=== PATIENT | female | born 1955 | race Caucasian/White ===

== ENCOUNTER 2018-11-27 10:30 | Emergency (ER) | payer OTHER ==
--- NOTE | 2018-11-27 12:12 | UC ---
Respiratory Complaint HPI - HPI Summary HPI Summary: 63 yo female presents with wheezing, cough, and chest congestion for the last week. She tells me that about a week ago her symptoms began and she saw her PCP in [place] who dx'd her with a viral illness and gave her tessalon. She has been taking these with no relief. She then flew to [place] and her cough has worsened and she has started to notice crackling and wheezing in her lungs. She mentions that she has a hx of PEx3, but this doesn't feel the same. She has an albuterol inhaler, but has not been using this. She denies fever, chills, sore throat, sinus symptoms, SOB, chest pain. - History of Current Complaint Chief Complaint: UCRespiratory Stated Complaint: COUGH Time Seen by Provider: 11/27/18 12:12 Hx Obtained From: Patient Onset/Duration: Gradual Onset Severity Initially: Mild Severity Currently: Mild Pain Intensity: 3 Pain Scale Used: 0-10 Numeric Character: Cough: Nonproductive - Allergies/Home Medications Allergies/Adverse Reactions: Allergies Allergy/AdvReac Type Severity Reaction Status Date / Time No Known Allergies Allergy Verified 11/27/18 10:59 Home Medications: Home Medications Albuterol HFA INHALER* [Ventolin HFA Inhaler*] 2 puff INH Q4H PRN 11/27/18 [ History Confirmed 11/27/18] Benzonatate CAP* [Tessalon 100 MG CAP*] 100 mg PO TID 11/27/18 [History Confirmed 11/27/18] FLUoxetine CAP* [PROzac CAP*] 40 mg PO DAILY 11/27/18 [History Confirmed ] Lisinopril 20 mg PO DAILY WITH MEAL 11/27/18 [History Confirmed 11/27/18] Warfarin TAB(*) [Coumadin TAB(*)] 7.5 mg PO 1700 11/27/18 [History Confirmed ] PMH/Surg Hx/FS Hx/Imm Hx - Additional Past Medical History Additional PMH: PE Cardiovascular History: Hypertension Psychological History: Anxiety, Depression - Surgical History Surgical History: Yes Surgery Procedure, Year, and Place: appy. c section. intestine/ resection. hysterectomy. lk rplacement - Family History Known Family History: Positive: Respiratory Disease, Blood Disorder - Social History Lives: With Family Alcohol Use: None Substance Use Type: None Smoking Status (MU): Never Smoked Tobacco Review of Systems All Other Systems Reviewed And Are Negative: Yes Constitutional: Positive: Negative Skin: Positive: Negative Eyes: Positive: Negative ENT: Positive: Negative Respiratory: Positive: Cough Cardiovascular: Positive: Negative Gastrointestinal: Positive: Negative Neurovascular: Positive: Negative Neurological: Positive: Negative Psychological: Positive: Negative Physical Exam - Summary Physical Exam Summary: GENERAL: NAD. WDWN. No pain distress. SKIN: No rashes, sores, lesions, or open wounds. HEENT: Head: AT/NC Eyes: Conjunctiva clear without inflammation or discharge. Ears: Hearing grossly normal. TMs intact, no bulging, erythema, or edema. Nose: Nasal mucosa pink and moist. NTTP maxillary and frontal sinus. Throat: Posterior oropharynx without exudates, erythema, or tonsillar enlargement. Uvula midline. NECK: Supple. Nontender. No lymphadenopathy. CHEST: Mild wheezing throughout with crackle RLL. No accessory muscle use. Breathing comfortably and in no distress. CV: RRR. Without m/r/g. Pulses intact. Cap refill <2seconds NEURO: Alert. PSYCH: Age appropriate behavior. Triage Information Reviewed: Yes Vital Signs: Initial Vital Signs Temp 97.0 F 11/27/18 10:54 Pulse 64 11/27/18 10:54 Resp 19 11/27/18 10:54 BP 150/85 11/27/18 10:54 Pulse Ox 98 11/27/18 10:54 Vital Signs Reviewed: Yes Respiratory Course/Dx - Course Course Of Treatment: CXR: IMPRESSION: NO ACTIVE CARDIOPULMONARY DISEASE. DUONEB: Feels improved s/p. Coughing up phlegm where she was unable to before. She is not tachypneic or tachycardic. Wheezing on exam with improvement s/p duoneb. Suspect bronchitis. Suspicion for recurrent PE is low at this time, but advised pt that if her symptoms do not improve or if her breathing worsens to go to the ED. She voiced understanding. Upon discharge, I was notified by Angela GRAVES that O2% recheck was down to 93%. I went to speak to the patient and she states that was "good for her". She is not having any dyspnea or difficulty breathing. I rechecked the O2% myself and found it to be 96%. Pt is wearing dark pink gel acrylic nail slovak and I suspect this is altering the O2% read. - Differential Dx/Diagnosis Provider Diagnosis: Bronchitis Discharge - Sign-Out/Discharge Documenting (check all that apply): Patient Departure All imaging exams completed and their final reports reviewed: Yes - Discharge Plan Condition: Stable Disposition: HOME Prescriptions: Amoxicillin/Clavulanate TAB* [Augmentin TAB 875*] 875 mg PO BID #14 tab predniSONE TAB* [Deltasone 20 MG TAB*] 40 mg PO DAILY #7 tab Patient Education Materials: Acute Bronchitis (ED) Referrals: No Primary Care Phys,NOPCP [Primary Care Provider] - Additional Instructions: If you develop a fever, shortness of breath, chest pain, new or worsening symptoms - please call your PCP or go to the ED. Your blood pressure was high at todays visit. Please see your primary provider within 4 weeks for recheck and re-evaluation. Continue using your albuterol inhaler as directed - Billing Disposition and Condition Condition: STABLE Disposition: Home - Attestation Statements Provider Attestation: Per institutional requirements, I have reviewed the chart, however, I was not consulted specifically or made aware of this patient by the midlevel provider. I did not personally evaluate, interact with , or disposition this patient.
[2018-11-27] MEDS ORDERED: Albuterol/Ipratropium NEB.SOL* Albuterol 2.5 MG/Ipratropium 0.5 MG 3 ML INH ONE (12:20)
[2018-11-27 13:23] VITALS: BP 126/77
== END 2018-11-27 13:34 | disposition home or self-care (01) ==
LOC: UCEAST 10:30
DX: J40 Bronchitis, not specified as acute or chronic (principal); I10 Essential (primary) hypertension; Z86.711 Personal history of pulmonary embolism; Z79.01 Long term (current) use of anticoagulants; F41.9 Anxiety disorder, unspecified; F32.9 Major depressive disorder, single episode, unspecified
CPT/HCPCS: 71046; 99212; A9270-GY; G0463